=== PATIENT | female | born 1975 | race Caucasian/White ===

== ENCOUNTER 2020-09-19 01:33 | Inpatient (IN) | payer MEDICAID ==
[~2020-09-19] VITALS: Ht 154.9 cm; Wt 81.6 kg
[2020-09-19] MEDS ORDERED: ATROPINE SULFATE 1MG/10ML SYR IV ONE (02:15)
[2020-09-19] MEDS ORDERED: SODIUM CHLORIDE 0.9% 1000ML BAG (SEPSIS BOLUS) IV ONE (02:15)
[2020-09-19 02:22] LABS: BASOPHILS % 0.7 % (0.0-2.0); EOSINOPHILS % 0.8 % (0.0-5.0); HEMATOCRIT. 34.8 % (36.0-48.0); HEMOGLOBIN. 11.1 g/dL (12.0-16.0); LYMPHOCYTES % 14.6 % (20.0-50.0); MEAN CORPUSCULAR HEMOGLOBIN 25.3 pg (28.0-32.0); MEAN CORPUSCULAR VOLUME 79.7 fL (81.0-99.0); MEAN PLATELET VOLUME 10.6 fl (7.4-10.4); MONOCYTES % 3.3 % (2.0-8.0); NEUTROPHILS % 80.6 % (40.0-76.0); PLATELET 367 x1000/uL (130-400); RED BLOOD CELL COUNT 4.37 mill/uL (4.2-5.4); RED CELL DISTRIBUTION WIDTH 16.6 % (11.6-14.6)
[2020-09-19 02:30] LABS: CHLORIDE 103 mEq/L (98-107)
[2020-09-19 02:34] LABS: ETHANOL BLOOD < 10 mg/dL
[2020-09-19 02:36] LABS: INR 1.1; PARTIAL THROMBOPLASTIN TIME 25.4 sec (23.4-31.0); PROTHROMBIN TIME 11.4 sec (9.6-11.0)
[2020-09-19] MEDS ORDERED: PIPERACILLIN/TAZOBACTAM 3.375GM/50ML PREMIX IV ONE (03:45)
[2020-09-19] MEDS ORDERED: VANCOMYCIN 1 G PREMIX 200 ML IV NR (04:00)
[2020-09-19] MEDS ORDERED: PIPERACILLIN/TAZ 3.375G PREMIX 50 ML IV NR (04:15)
[2020-09-19] MEDS ORDERED: SODIUM CHLORIDE 0.9% 100 ML IV ONE (11:30)
[2020-09-19] MEDS: SODIUM CHLORIDE 0.9% 1,000 ML IV SCH (12:46)
[2020-09-19 13:39] LABS: T4 FREE 1.33 ng/dL (0.76-1.46)
[2020-09-19 14:12] VITALS: BP 96/56
[2020-09-19 16:00] VITALS: BP 103/44
[2020-09-19] MEDS ORDERED: PANT40SU PO (17:44)
[2020-09-19] MEDS ORDERED: MOME13HF INH (17:46)
[2020-09-19] MEDS ORDERED: ALBU6.7H9 INH (17:46)
[2020-09-19] MEDS ORDERED: FLUT9.9S BOTHNSTRLS (17:47)
[2020-09-19] MEDS ORDERED: POTASSIUM CHLORIDE 20MEQ TABLET SR PO SCH (18:00)
[2020-09-19] MEDS ORDERED: ONDANSETRON HCL 4MG/2ML INJ IV PRN (18:00)
[2020-09-19] MEDS ORDERED: IPRATROPIUM/ALBUTEROL 0.5-3(2.5)MG/3ML NEB HHN PRN (18:00)
[2020-09-19] MEDS ORDERED: DIPHENHYDRAMINE 50MG/ML VIAL IV PRN (18:00)
[2020-09-19] MEDS ORDERED: ZOLPIDEM TARTRATE 5MG TABLET PO PRN (18:00)
[2020-09-19] MEDS ORDERED: MAGNESIUM/ALUMINUM HYDROXIDE/SIMETHICONE 30ML UDC PO PRN ×2 (18:00→20:45)
[2020-09-19] MEDS ORDERED: ACETAMINOPHEN 325MG TABLET PO PRN ×2 (18:00)
[2020-09-19 20:00] VITALS: BP 114/55
[2020-09-19] MEDS: PANTOPRAZOLE 40MG DR TABLET PO SCH (21:00)
[2020-09-19 22:05] VITALS: BP 100/56
[2020-09-19 22:07] VITALS: BP 98/50
[2020-09-19 22:09] VITALS: BP 91/63
[2020-09-19] MEDS: CEFTRIAXONE 1,000 MG in DEXTROSE 5% WATER 50 ML IV SCH (22:19)
[2020-09-20] VITALS: BP 108/65
[2020-09-20] MEDS: SODIUM CHLORIDE 0.9% 1,000 ML IV SCH ×2 (00:36→16:30)
[2020-09-20 04:00] VITALS: BP 114/53
[2020-09-20] MEDS ORDERED: VANCOMYCIN 750 MG PREMIX 150 ML IV SCH (05:00)
[2020-09-20] MEDS: PANTOPRAZOLE 40MG DR TABLET PO SCH ×3 (06:40→21:13)
[2020-09-20 06:42] LABS: BASOPHILS % 1.1 % (0.0-2.0); EOSINOPHILS % 1.7 % (0.0-5.0); HEMATOCRIT. 30.3 % (36.0-48.0); LYMPHOCYTES % 22.7 % (20.0-50.0); MEAN CORPUSCULAR HEMOGLOBIN 26.1 pg (28.0-32.0); MEAN PLATELET VOLUME 10.1 fl (7.4-10.4); MONOCYTES % 9.4 % (2.0-8.0); NEUTROPHILS % 65.1 % (40.0-76.0); PLATELET 242 x1000/uL (130-400); RED BLOOD CELL COUNT 3.83 mill/uL (4.2-5.4); RED CELL DISTRIBUTION WIDTH 16.6 % (11.6-14.6)
[2020-09-20 07:16] LABS: CHLORIDE 111 mEq/L (98-107)
[2020-09-20 07:23] LABS: PHOSPHORUS 2.6 mg/dL (2.5-4.9)
[2020-09-20 08:30] VITALS: BP 106/56
[2020-09-20] MEDS: VANCOMYCIN 750 MG PREMIX 150 ML IV SCH ×2 (11:32→21:13)
[2020-09-20 12:30] VITALS: BP 126/60
[2020-09-20 20:00] VITALS: BP_SYST 103; BP_SYST 111; BP_SYST 113; BP_DIAS 62; BP_DIAS 63
[2020-09-20] MEDS: CEFTRIAXONE 1,000 MG in DEXTROSE 5% WATER 50 ML IV SCH (21:13)
[2020-09-21] VITALS: BP 117/64
[2020-09-21 04:00] VITALS: BP 123/64
[2020-09-21] MEDS: SODIUM CHLORIDE 0.9% 1,000 ML IV SCH ×2 (04:49→13:02)
[2020-09-21 06:39] LABS: CHLORIDE 110 mEq/L (98-107)
[2020-09-21] MEDS: PANTOPRAZOLE 40MG DR TABLET PO SCH ×2 (07:04→21:00)
[2020-09-21 08:00] VITALS: BP 115/56
[2020-09-21] MEDS: VANCOMYCIN 750 MG PREMIX 150 ML IV SCH (09:04)
[2020-09-21 12:00] VITALS: BP 120/61
[2020-09-21 16:00] VITALS: BP 109/53
[2020-09-21] MEDS ORDERED: VANCOMYCIN 1 G PREMIX 200 ML IV SCH (18:00)
[2020-09-21 20:00] VITALS: BP 133/46
[2020-09-21] MEDS: CEFTRIAXONE 1,000 MG in DEXTROSE 5% WATER 50 ML IV SCH (21:04)
[2020-09-22] VITALS: BP 130/74
[2020-09-22] MEDS: SODIUM CHLORIDE 0.9% 1,000 ML IV SCH ×2 (00:29→08:39)
[2020-09-22 04:00] VITALS: BP_SYST 117; BP_SYST 119; BP_SYST 124; BP_DIAS 64; BP_DIAS 73; BP_DIAS 80
[2020-09-22] MEDS: PANTOPRAZOLE 40MG DR TABLET PO SCH (07:22)
[2020-09-22 08:17] VITALS: BP 110/61
[2020-09-22 12:27] VITALS: BP 107/65
[2020-09-22 13:00] VITALS: BP 107/65
== END 2020-09-22 14:22 | disposition home or self-care (01) | DRG 720 ==
LOC: ER 01:33 → 6WST 03:42 → ENRESERV 08:48
PROVIDERS: ADMIT Internal Medicine; ATTEND Internal Medicine
DX: A41.9 Sepsis, unspecified organism (principal); E11.9 Type 2 diabetes mellitus without complications; R65.21 Severe sepsis with septic shock; N75.1 Abscess of Bartholin's gland; E66.9 Obesity, unspecified; R00.1 Bradycardia, unspecified; I95.1 Orthostatic hypotension; E87.6 Hypokalemia; K21.9 Gastro-esophageal reflux disease without esophagitis; N75.0 Cyst of Bartholin's gland; J45.909 Unspecified asthma, uncomplicated; E87.2 Acidosis; G90.8 Other disorders of autonomic nervous system; D25.9 Leiomyoma of uterus, unspecified; R56.9 Unspecified convulsions; E66.01 Morbid (severe) obesity due to excess calories; Z98.891 History of uterine scar from previous surgery; Z83.3 Family history of diabetes mellitus; Z68.34 Body mass index [BMI] 34.0-34.9, adult
CPT/HCPCS: 36415; 71045; 80048; 80053; 80202; 80320; 82962; 83605; 83735; 83880; 84100; 84145; 84439; 84443; 84484; 85025; 87077; 87186; 93005; 93306; 99291; J0461; J0696; J2543; J3370; J7030; J7060; G0480

== ENCOUNTER 2024-11-12 03:36 | Emergency (ER) | payer MEDICAID, OTHER ==
[~2024-11-12] VITALS: Ht 154.9 cm; Wt 79.3 kg
[~2024-11-12 03:36] MED LIST: ALBU6.7H3 INH; FLUT9.9S BOTHNSTRLS; MOME13HF11 INH; PANT40SU PO
[2024-11-12 03:49] VITALS: O2SAT 99
[2024-11-12] MEDS: ACETAMINOPHEN 325MG TABLET PO ONE (04:30)
[2024-11-12] MEDS ORDERED: ACET-2708 MT (05:07)
[2024-11-12 05:18] VITALS: BP 144/75; PULSE 79; RESP 19; TEMP 36.8; O2SAT 99
== END 2024-11-12 07:35 | disposition home or self-care (01) ==
LOC: ER 03:36
DX: R07.81 Pleurodynia (principal); E11.9 Type 2 diabetes mellitus without complications; J45.909 Unspecified asthma, uncomplicated; Z79.51 Long term (current) use of inhaled steroids; Z98.890 Other specified postprocedural states
CPT/HCPCS: 71100; 81025; 99283